=== PATIENT | female | born 1950 ===

== ENCOUNTER 2022-09-21 17:57 | Emergency (ER) | payer OTHER ==
--- OUTSIDE RECORDS SUMMARY | 2022-09-21 18:00 | XMS REPORT | Continuity of Care Document ---
:1950 Author Organization [facility] t Address [address] [place] [address] Care Team Providers Name Role Phone Jose Alex Primary Care Physician Ambar Thompson Attending Clinician Unavailable Jose Alex Attending Clinician SAMEERA MCMAHON Attending Clinician Unavailable Sameera Stone Attending Clinician Obdulia Faust MD Attending Clinician Payers Payer Name Policy Type Policy Number Effective Date Expiration Date S ource Problems Condition Condition Condition Status Onset Resolution Last Treating Co mments Source Name Details Category Date Date Treatment Clinician Date No known No known Disease Unive rs active active ity of problems problems [facility] Difficulty Difficulty Problem Active C ommon sleeping sleeping [facility] Hyperchole Hyperchole Problem Active C ommon steremia steremia [facility] Hip Hip Problem Active Common bursitis bursitis [facility] Osteopenia Osteopenia Problem Active C ommon of hip, of hip, Spirit unspecifie unspecifie - [facility] d d [facility] laterality laterality [facility] Allergic Allergic Problem Active Commo n rhinitis rhinitis [facility] Body mass Body mass Problem Active Com mon index index Spirit (BMI) of (BMI) of - CHI 32.0-32.9 32.0-32.9 St in adult in adult [facility] GERD GERD Problem Active Common (gastroeso (gastroeso Sp michelle phageal phageal - [facility]I reflux reflux St disease) disease) [facility] Leg pain Leg pain Problem Active Commo n Spirit - [facility] Hypothyroi Hypothyroi Problem Active C ommon dism dism [facility] Benign Benign Problem Active Common essential essential Spir it HTN HTN - [facility] Functional Functional Problem Active C ommon incontinen incontinen Sp michelle ce ce - [facility] Screening Screening Problem Active Com mon for for [facility] malignant malignant - CH I neoplasm neoplasm St of breast of [facility] Left Left Diagnosis Active Common sciatic sciatic [facility] nerve pain nerve pain - [facility] Encounter Encounter Problem Active Com mon for for [facility] immunizati immunizati - [facility] on on [facility] Allergies, Adverse Reactions, Alerts Allergy Allergy Status Severity Reaction(s) Onset Inactive Treating Comm ents Source Name Type Date Date Clinician PENICILL DRUG Active Rash Univers IN INGREDI 10-01 ity of 00:00: [place] 00 Medical Branch Penicill Propensi Active Rash Univer s in ty to 10-01 ity of adverse 00:00: [place] reaction 00 Medical s Branch NO KNOWN Drug Active Univers ALLERGIE Class ity of S [facility] PCN Adverse Active rash Common Reaction [facility] Social History Social Habit Start Date Stop Date Quantity Comments Source Exposure to 2021-09-21 2021-10-01 Not sure [facility] SARS-CoV-2 (event) 00:00:00 09:56:00 Medica l Branch Sex Ass[birth year] At [birth year] [facility] y of [place] 00:00:00 00:00:00 Medical Branch Smoking Status Start Date Stop Date Source Tobacco smoking consumption [facility] Medical unknown Branch Medications Ordered Filled Start Stop Current Ordering Indication Dosage Frequency Signature Comments Components Source Medication Medication Date Date Medication? Clinician (SIG) Name Name amLODIPine Yes 1 tablet Uni vers 5 mg tablet -25 ity of 10:12: [place] Medical [facility] lisinopriL- Yes 1 tablet Un monse hydrochloro -25 ity of thiazide 10:12: [place] 20-12.5 mg 26 Medical per tablet Branch levothyroxi Yes TAKE 1 Univ ers ne 100 mcg 7-25 TABLET BY ity of tablet 10:12: MOUTH IN [place] THE Medical MORNING Branch ONCE DAILY ON AN EMPTY STOMACH gabapentin Yes TAKE 1 Unive rs 300 mg 7-25 CAPSULE BY ity of capsule 10:12: MOUTH 3 [place] TIMES Medical DAILY Branch simvastatin Yes 1 tablet Un monse 10 mg 7-25 in the ity of tablet 10:12: evening [place] [address] Medical Branch alendronate Yes 1{tbl} Take 1 Un monse 70 mg 7-25 tablet by ity of tablet 10:12: mouth [place] [address] weekly. Medical Branch amLODIPine Yes 1 tablet Uni vers 5 mg tablet 7-25 ity of 10:12: [place] [facility] lisinopriL- Yes 1 tablet Un monse hydrochloro 7-25 ity of thiazide 10:12: [place] 20-12.5 mg 26 Medical per tablet Branch levothyroxi Yes TAKE 1 Univ ers ne 100 mcg 7-25 TABLET BY ity of tablet 10:12: MOUTH IN [place] [address] THE Medical MORNING Branch ONCE DAILY ON AN EMPTY STOMACH gabapentin Yes TAKE 1 Unive rs 300 mg 7-25 CAPSULE BY ity of capsule 10:12: MOUTH 3 [place] [address] TIMES Medical DAILY Branch simvastatin Yes 1 tablet Un monse 10 mg 7-25 in the ity of tablet 10:12: evening [place] [address] Medical Branch alendronate Yes 1{tbl} Take 1 Un monse 70 mg 7-25 tablet by ity of tablet 10:12: mouth [place] [address] weekly. Medical Branch amLODIPine Yes 1 tablet Uni vers 5 mg tablet 7-25 ity of 10:12: [place] Medical [facility] lisinopriL- Yes 1 tablet Un monse hydrochloro 7-25 ity of thiazide 10:12: [place] 20-12.5 mg 26 Medical per tablet Branch levothyroxi Yes TAKE 1 Univ ers ne 100 mcg 7-25 TABLET BY ity of tablet 10:12: MOUTH IN [place] [address] THE Medical MORNING Branch ONCE DAILY ON AN EMPTY STOMACH gabapentin Yes TAKE 1 Unive rs 300 mg 7-25 CAPSULE BY ity of capsule 10:12: MOUTH 3 [place] [address] TIMES Medical DAILY Branch simvastatin Yes 1 tablet Un monse 10 mg 7-25 in the ity of tablet 10:12: evening [place] [address] Medical Branch alendronate 2022-0 Yes 1{tbl} Take 1 Un monse 70 mg 7-25 tablet by ity of tablet 10:12: mouth [place] 26 weekly. Medical Branch methylPREDN 0 Yes [id number] Take by [facility]-25 9107 mouth ity of mg tablets 00:00: [place] 00 CTIONS. Medical follow Branch package directions methylPREDN 0 Yes [id number] Take by [facility] 4 7-25 9107 mouth ity of mg tablets 00:00: [place]-INSTRU [place] 00 CTIONS. Medical follow Branch package directions methylPREDN 0 Yes [id number] Take by [facility] 4 7-25 9107 mouth ity of mg tablets 00:00: [place]-INSTRU [place] 00 CTIONS. Medical follow Branch package directions metoprolol Yes Univers succinate 6-20 ity of XL 25 mg 24 00:00: [place] hr tablet 00 Medical Branch metoprolol 0 Yes Univers succinate 6-20 ity of XL 25 mg 24 00:00: [place] hr tablet 00 Medical Branch metoprolol 0 Yes Univers succinate 6-20 ity of XL 25 mg 24 00:00: [place] hr tablet 00 Medical Branch pantoprazol 0 Yes 1 tablet Un monse e 40 mg EC 1-19 ity of tablet 00:00: [place] 00 Medical Branch pantoprazol 0 Yes 1 tablet Un monse e 40 mg EC 1-19 ity of tablet 00:00: [place] 00 Medical Branch pantoprazol 0 Yes 1 tablet Un monse e 40 mg EC 1-19 ity of tablet 00:00: [place] 00 Medical Branch Medrol Medrol 2019-0 2020- No Thalia as Common 2-17 02-22 Kennedy directed Spirit 00:00: 00:00 - [facility]I 00 :00 [facility] Fluticasone Fluticasone 2018-0 Yes Thalia 1 spray in Common Propionate Propionate 4-30 Kennedy each Sp michelle 00:00: nostril - CHI 00 [facility] Mobic Mobic Yes Thalia TAKE 1 Common Kennedy TABLET BY Spirit MOUTH ONCE - CHI A DAY [facility] Aspir-81 Aspir-81 Yes Thalia 1 tablet C ommon Kennedy Spirit - [facility] Ultram Ultram Yes Thalia 1 tablet Commo n Kennedy as needed [facility] Synthroid Synthroid Yes Thalia TAKE 1 C ommon Kennedy TABLET BY Spirit MOUTH ONCE - CHI A DAY [facility] Simvastatin Simvastatin Yes Thalia TAKE 1 Common Kennedy TABLET BY Spirit MOUTH ONCE - CHI A DAY [facility] Zestoretic Zestoretic Yes Thalia TAKE 1 Common Kennedy TABLET BY Spirit MOUTH - CHI TWICE A [facility] Zyrtec Zyrtec Yes Thalia 1 tablet Commo n Allergy Allergy Kennedy [facility] Flonase Flonase Yes Thalia 1 spray in C ommon Kennedy each [facility] nostril [facility] Fosamax Fosamax Yes Thalia TAKE 1 Commo n Kennedy TABLET BY Spirit MOUTH ONCE - CHI A WEEK [facility] Restasis Restasis Yes Thalia 1 drop Com mon Kennedy into [facility] affected - [facility] eye [facility] Amlodipine Amlodipine Yes Thalia TAKE 1 Common Besylate Besylate Kennedy TABLET BY S pirit MOUTH ONCE - CHI A DAY [facility] Metoprolol Metoprolol Yes Thalia TAKE 1 Common Succinate Succinate Kennedy TABLET BY Spirit ER ER MOUTH ONCE - CHI A DAY [facility] Vitamin D3 Vitamin D3 Yes Thalia 1 tablet Common Kennedy [facility] Immunizations Ordered Immunization Filled Immunization Date Status Commen ts Source Name Name FLUZONE HIGH DOSE FLUZONE HIGH DOSE 2019-04-26 Completed [facility] OVER 65 OVER 65 00:00:00 [facility] Vital Signs Vital Name Observation Time Observation Value Comments Source Systolic blood 2021-10-01 15:02:00 125 mm[Hg[facility] Diastolic blood 2021-10-01 15:02:00 79 mm[Hg] [facility] pressure Medical Branch Heart rate 2021-10-01 15:02:00 60 /min [facility] Oxygen saturation 2021-10-01 15:02:00 96 /min [facility] in Arterial blood Medical Br anch by Pulse oximetry Body weight 2021-10-01 15:00:00 74.435 kg [facility] BMI 2021-10-01 15:00:00 32.05 kg/m2 [facility] Body height 2021-10-01 15:00:00 152.4 cm [facility] Procedures Procedure Date / Time Performed Performing Clinician Jame e XR FOOT 3+ VW RIGHT 2021-10-01 15:24:00 Sameera Mcmahon [facility] Encounters Start End Encounter Admission Attending Care Care Encounter Source Date/Time Date/Time Type Type Clinicians Facility Department ID 2021-04-04 Outpatient Donna [facility] [id number] Common 11:08:02 Ambar [id number] Spirit - [facility] 2021-10-17 2021-10-[address] [facility] [id number] Univers 00:00:00 00:00:00 [facility] [id number] it y of [place] [id number] Benigno as AG?BLEA [id number] [facility] [address] [facility] 2021-10-01 2021-10-01 Out[facility] [id number] Univers 10:15:03 23:59:00 SAMEERA pacheco f [facility] 2021-10-01 2021-10-01 [facility] [id number] Univers 10:15:03 23:59:00 Encounter [facility] [id number] ity of [place] [id number] Benigno as AG?BLEA [id number] Pr dical HAZEL [address] MEDICAL [facility] 2021-10-01 2021-10-01 Urgent Teofilo [facility] [id number] Univers 10:00:00 10:22:07 Care Obdulia Faust [facility] [id number] ity of [place] [id number] Benigno as AG?BLEA [id number] Pr dical [facility] [address] MEDICAL OFFICE [facility] 2019-06-09 2019-06-09 [facility] [id number] Common 14:37:00 14:37:[address] [facility] 2019-04-26 2019-04-26 [facility] [id number] Common 14:20:00 14:20:[address] [facility] 2018-11-19 2018-11-19 [facility] [id number] Common 08:40:00 08:40:[address] [facility] 2018-09-15 2018-09-15 [facility] [id number] Common 16:00:00 16:00:[address] [facility] 2018-07-07 2018-07-07 [facility] [id number] Common 08:00:00 08:00:[address] [facility] 2018-06-12 2018-06-12 [facility] [id number] Common 16:52:00 16:52:[address] [facility] 2018-06-04 2018-06-04 [facility] [id number] Common 11:09:00 11:09:[address] [facility] 2018-05-14 2018-05-14 [facility] [id number] Common 10:00:00 10:00:[address] [facility] 2018-03-12 2018-03-12 Out[facility] [id number] Common 09:45:00 09:45:[address] [facility] 2017-10-14 2017-10-14 Out[facility] [id number] Common 13:00:00 13:00:[address] [facility] Results This patient has no known results.
[2022-09-21] MEDS ORDERED: HYDROCODONE/APAP 7.5/325 MG TAB ONE (18:38)
--- NOTE | 2022-09-21 18:38 | RAD REPORT ---
EXAM DESCRIPTION: RAD - Femur Right - 09/21/2022 6:31 pm CLINICAL HISTORY: PAIN COMPARISON: No comparisons FINDINGS: No fracture, dislocation or AVN.
--- NOTE | 2022-09-21 19:03 | EDPHYS ---
Physician Documentation [facility] Name: Nancy Olguin Age: 72 yrs Sex: Female : 1950 Arrival Date: 09/21/2022 Time: 17:57 Bed 6 Private MD: ED Physician Albino Simmons HPI: 09/21 18:24 This 72 yrs old Female presents to ER via Wheelchair with complaints of Hip Pain. sb4 18:24 The patient or guardian reports decreased range of motion, pain. that occurred at home, sb4 sustained from slipping There is no obvious deformity, The patient is able to ambulate with assistance. Patient is not able to bear weight. The patient's discomfort radiates to the right hamstring. The complaints affect the right leg. Onset: The symptoms/episode began/occurred just prior to arrival. Modifying factors: The symptoms are alleviated by nothing, the symptoms are aggravated by weight bearing. 72 year old female slipped on her dust parada at home causing her to go into the splits, extending her right leg. She is complaining of pain in her right hamstring and right hip, cannot bear weight. Historical: - Allergies: 18:09 PENICILLINS; hb - Home Meds: 18:09 simvastatin Oral [Active]; gabapentin oral [Active]; Lisinopril Oral [Active]; hb Metoprolol Tartrate Oral [Active]; amlodipine oral [Active]; - PMHx: 18:09 Hypertensive disorder; Sciatica; hb - PSHx: 18:09 None; hb - Immunization history:: Adult Immunizations up to date. - Social history:: Smoking status: Patient denies any tobacco usage or history of. ROS: 18:24 Constitutional: Negative for fever, chills, and weight loss. sb4 18:24 MS/extremity: Positive for injury or acute deformity, pain, of the right hip and right hamstring. 18:24 All other systems are negative. Exam: 18:24 Constitutional: This is a well developed, well nourished patient who is awake, alert, sb4 and in no acute distress. Head/Face: Normocephalic, atraumatic. Eyes: Extra-ocular motions intact. Periorbital areas with no swelling, redness, or edema. Cardiovascular: Regular rate and rhythm with a normal S1 and S2. Respiratory: Lungs have equal breath sounds bilaterally, clear to auscultation and percussion. No rales, rhonchi or wheezes noted. No increased work of breathing, no retractions or nasal flaring. Abdomen/GI: Soft, non-tender, no distension. Skin: Warm, dry with normal turgor. Normal color with no rashes, no lesions, and no evidence of cellulitis. Neuro: Awake and alert, GCS 15, oriented to person, place, time, and situation. Cranial nerves II-XII grossly intact. Motor strength 5/5 in all extremities. Sensory grossly intact. Cerebellar exam normal. Normal gait. 18:24 Musculoskeletal/extremity: Extremities: ROM: intact in all extremities, Circulation is intact in all extremities. Sensation intact. Vital Signs: 18:08 BP 175 / 61; Pulse 64; Resp 16; Temp 98; Pulse Ox 100% on R/A; Weight 72.57 kg; Height hb 5 ft. 0 in. ; Pain 8/10; 18:33 BP 169 / 70; Pulse 60; Resp 17; Pulse Ox 99% ; vg1 18:08 Body Mass Index 31.25 (72.57 kg, 152.4 cm) hb 18:08 Pain Scale: Adult hb MDM: 17:59 Patient medically screened. sb4 18:24 Differential diagnosis: hip fracture, femoral neck fracture, femoral shaft fracture, sb4 arthritis, strain. 19:00 Data reviewed: vital signs, nurses notes, radiologic studies, and as a result, I will sb4 discharge patient. Counseling: I had a detailed discussion with the patient and/or guardian regarding: the historical points, exam findings, and any diagnostic results supporting the discharge/admit diagnosis, radiology results. ED course: Discussed with patient she likely strained her hamstring and she should follow up with orthopedics in 4-6 weeks if it has not improved. 09/21 18:07 Order name: Femur Right XRAY; Complete Time: 18:52 sb4 Administered Medications: 18:30 Drug: Hydrocodone-Acetaminophen PO (7.5 mg-325 mg) 1 tabs Route: PO; vg1 19:14 Follow up: Response: No adverse reaction vg1 Disposition Summary: 09/21/22 19:02 Discharge Ordered Location: Home sb4 Problem: new sb4 Symptoms: have improved sb4 Condition: Stable sb4 Diagnosis - Hamstring Strain sb4 Followup: sb4 - With: Marcus Arellano MD - When: As needed - Reason: Further diagnostic work-up, Re-evaluation by your physician Discharge Instructions: - Discharge Summary Sheet sb4 - Hamstring Strain Rehab-[facility] sb4 Forms: - Medication Reconciliation Form sb4 - Thank You Letter sb4 - Antibiotic Education sb4 - Prescription Opioid Use sb4 - Patient Portal Instructions sb4 Prescriptions: - orphenadrine citrate 100 mg Oral Tablet Sustained Release - take 1 tablet by ORAL route 2 times per day As needed; 20 tablet; Refills: 0, sb4 Product Selection Permitted Signatures: Dispatcher [employer] Milena Son RN RN Riri Spring RN RN vg1 Nya Grover PA-C PAMatt sb4 Corrections: (The following items were deleted from the chart) 18:11 18:09 PSHx: None; [facility] 18:32 18:08 Hip Right 2 View+RAD.RAD.BRZ ordered. EDMS EDMS
--- NOTE | 2022-09-21 19:03 | ER ---
Nurse's Notes [facility] Name: Nancy Olguin Age: 72 yrs Sex: Female : 1950 Arrival Date: 09/21/2022 Time: 17:57 Bed 6 Private MD: Diagnosis: Hamstring Strain Presentation: 09/21 18:08 Chief complaint: Slipped on plastic dust parada and did the splits, c/o right thigh pain hb that radiates to right knee and right hip, unable to bear weight. Coronavirus screen: At this time, the client does not indicate any symptoms associated with coronavirus-19. Ebola Screen: No symptoms or risks identified at this time. Initial Sepsis Screen: Does the patient meet any 2 criteria? No. Patient's initial sepsis screen is negative. Does the patient have a suspected source of infection? No. Patient's initial sepsis screen is negative. Risk Assessment: Do you want to hurt yourself or someone else? Patient reports no desire to harm self or others. Onset of symptoms was September 21, 2022. 18:08 Method Of Arrival: Wheelchair hb 18:08 Acuity: BRENDEN 4 hb Historical: - Allergies: 18:09 PENICILLINS; hb - Home Meds: 18:09 simvastatin Oral [Active]; gabapentin oral [Active]; Lisinopril Oral [Active]; hb Metoprolol Tartrate Oral [Active]; amlodipine oral [Active]; - PMHx: 18:09 Hypertensive disorder; Sciatica; hb - PSHx: 18:09 None; hb - Immunization history:: Adult Immunizations up to date. - Social history:: Smoking status: Patient denies any tobacco usage or history of. Screenin:34 [facility] ED Fall Risk Assessment (Adult) History of falling in the last 3 months, vg1 including since admission Yes- single mechanical fall (1 pt) Confusion or Disorientation No (0 pts) Intoxicated or Sedated No (0 pts) Impaired Gait Yes (1 pt) Mobility Assist Device Used No (0 pt) Altered Elimination No (0 pt) Score/Fall Risk Level 0 - 2 = Low Risk Oriented to surroundings, Maintained a safe environment, Educated pt \T\ family on fall prevention, incl call for assistance when getting out of bed, Assessed \T\ reinforced patient's understanding of fall precautions. Abuse screen: Denies threats or abuse. Denies injuries from another. Nutritional screening: No deficits noted. Tuberculosis screening: No symptoms or risk factors identified. Assessment: 18:33 General: Appears in no apparent distress. uncomfortable, Behavior is calm, cooperative. vg1 Pain: Complains of pain in right hip and right hamstring Pain currently is 5 out of 10 on a pain scale. at worst was 10 out of 10 on a pain scale. Pain began 2 hours ago. Neuro: Level of Consciousness is awake, alert, obeys commands, Oriented to person, place, time, situation. Cardiovascular: Patient's skin is warm and dry. Respiratory: Airway is patent Respiratory effort is even, unlabored. Musculoskeletal: Circulation, motion, and sensation intact. Reports pain in right hip and right hamstring. 19:10 Reassessment: Patient appears in no apparent distress at this time. Patient and/or jb4 family updated on plan of care and expected duration. Pain level reassessed. Patient is alert, oriented x 3, equal unlabored respirations, skin warm/dry/pink. Vital Signs: 18:08 BP 175 / 61; Pulse 64; Resp 16; Temp 98; Pulse Ox 100% on R/A; Weight 72.57 kg; Height hb 5 ft. 0 in. ; Pain 8/10; 18:33 BP 169 / 70; Pulse 60; Resp 17; Pulse Ox 99% ; vg1 18:08 Body Mass Index 31.25 (72.57 kg, 152.4 cm) hb 18:08 Pain Scale: Adult hb ED Course: 17:58 Patient arrived in ED. ts1 17:59 Nya Grover PA-C is [facility]. sb4 17:59 Albino Simmons MD is Attending Physician. sb4 18:03 Riri Spring, RN is Primary Nurse. vg1 18:09 Triage completed. hb 18:11 Arm band placed on. hb 18:32 Femur Right XRAY In Process Unspecified. EDMS 18:34 Patient has correct armband on for positive identification. Bed in low position. Call vg1 light in reach. Side rails up X 1. Adult w/ patient. 18:34 No provider procedures requiring assistance completed. vg1 19:02 Marcus Arellano MD is Referral Physician. sb4 19:11 Patient did not have IV access during this emergency room visit. jb4 Administered Medications: 18:30 Drug: Hydrocodone-Acetaminophen PO (7.5 mg-325 mg) 1 tabs Route: PO; vg1 19:14 Follow up: Response: No adverse reaction vg1 Medication: 19:10 VIS not applicable for this client. jb4 Outcome: 19:02 Discharge ordered by . sb4 19:10 Discharged to home ambulatory, with family. jb4 19:10 Condition: stable 19:10 Discharge instructions given to patient, Instructed on discharge instructions, follow up and referral plans. no drinking with medication, no driving heavy equipment, medication usage, Demonstrated understanding of instructions, follow-up care, medications, Prescriptions given X 1. 19:10 Patient left the ED. jb4 Signatures: Dispatcher [employer] EDMS Milena Root RN RN Rex Dunbar RN ZULMA jb4 Riri Spring RN RN vg1 Nya Grover, PA-C PA-C sb4 Dahiana Major PAS PAS ts1 Corrections: (The following items were deleted from the chart) 18:11 18:09 PSHx: None; hb hb
[2022-09-21 19:16] VITALS: TEMP 98
[2022-09-21 19:18] VITALS: BP 169/70; O2SAT 99
== END 2022-09-21 19:10 | disposition home or self-care (01) ==
LOC: ER 17:57
DX: S76.811A Strain of other specified muscles, fascia and tendons at thigh level, right thigh, initial encounter (principal); Z88.0 Allergy status to penicillin
CPT/HCPCS: 99283